=== PATIENT | female | born 1955 | race Caucasian/White ===

== ENCOUNTER 2017-08-01 18:45 | Emergency (ER) | payer OTHER ==
[~2017-08-01] VITALS: Ht 165.1 cm; Wt 83.9 kg
[2017-08-01] MEDS ORDERED: SYNTHROID50 MCG PO (19:05)
== END 2017-08-01 20:34 | disposition home or self-care (01) ==
LOC: ER 18:45
DX: B34.9 Viral infection, unspecified (principal)